=== PATIENT | male | born 1940 | race Caucasian/White ===

== ENCOUNTER 2021-07-19 18:45 | Inpatient (IN) ==
[2021-07-20] MEDS ORDERED: Morphine Sulfate 2 MG/ML SYRINGE IVP ONE (01:15)
[2021-07-20] MEDS ORDERED: Perflutren Lipid Microsphere 1.3 ML in 0.9 % Sodium Chloride 8.7 ML IVP PRN (01:35)
[2021-07-20] MEDS ORDERED: Acetaminophen 325 MG TABLET PO PRN (02:01)
[2021-07-20] MEDS ORDERED: Naloxone 0.4 MG/ML INJ IVP PRN (02:01)
[2021-07-20] MEDS ORDERED: Ondansetron 4 MG/2 ML VIAL IVP PRN (02:01)
[2021-07-20 02:04] LABS: Basophils % 0.7 %; Eosinophils # 0.1 K/mcL (0.0-0.6); Eosinophils % 1.2 %; Hematocrit 38.9 % (37.5-50.1); Hemoglobin 12.7 g/dL (12.9-16.9); Immature Granulocytes % 0.2 % (0-4); Lymphocytes # 1.4 K/mcL (0.6-4.6); Mean Corpuscular HGB Conc 32.6 g/dL (31.6-35.5); Mean Corpuscular Hemoglobin 29.5 pg (28.0-33.3); Mean Corpuscular Volume 90.3 fL (83.0-100.0); Mean Platelet Volume 9.4 fL (9.4-12.4); Monocytes # 0.4 K/mcL (0.0-1.3); Neutrophils # 3.8 K/mcL (1.6-8.9); Platelet Count 159 K/mcL (140-400); Red Blood Count 4.31 M/mcL (4.19-5.50); Red Cell Distribution Width 13.2 % (11.5-14.5); Segmented Neutrophils % 65.9 %; White Blood Count 5.7 K/mcL (4.3-11.1)
[2021-07-20] MEDS ORDERED: Nitroglycerin 1 INCH/GM PACKET TP ONE (02:07)
[2021-07-20 02:18] LABS: INR 1.1; Prothrombin Time 11.9 Seconds (9.4-12.1)
[2021-07-20 02:20] LABS: Activated Partial Thrombo Time 68.8 Seconds (26.0-36.0)
[2021-07-20 02:28] LABS: Troponin I 5.08 ng/mL (< 0.04)
[2021-07-20 02:29] LABS: % Iron Saturation 25 % (20-55); Alanine Aminotransferase 22 Units/L (7-52); Albumin 3.8 g/dL (3.5-5.7); Albumin/Globulin Ratio 1.9 (1.1-2.2); Alkaline Phosphatase 52 Units/L (34-104); Aspartate Amino Transferase 46 Units/L (13-39); BUN/Creatinine Ratio 22 (6-26); Bilirubin,Total 0.4 mg/dL (0.3-1.0); Blood Urea Nitrogen 25 mg/dL (8-23); Carbon Dioxide 28 mEq/L (23-29); Chloride 103 mEq/L (98-107); Chol/HDL Ratio 3.4 (0-4.9); Cholesterol 192 mg/dL (< 200); Glucose 159 mg/dL (70-105); HDL Cholesterol 56 mg/dL (40-59); Iron 78 mcg/dL (65-175); LDL Cholesterol,Calculated 102 mg/dL (< 100); Osmolality,Calculated 294 (280-300); Potassium 3.5 mEq/L (3.5-5.1); Sodium 138 mEq/L (136-145); Total Protein 5.8 g/dL (6.4-8.9); Transferrin 223 mg/dL (203-362); Triglycerides 168 mg/dL (< 150); eGFR For African Americans > 60 (> 60); eGFR For Non-African Americans > 60 (> 60)
[2021-07-20 02:46] LABS: Folate 11.1 ng/mL (3.0-16.0)
[2021-07-20 02:49] LABS: Ferritin 123 ng/mL (20-250); Thyroid Stimulating Hormone 5.081 mcIU/mL (0.340-5.600)
[2021-07-20] MEDS ORDERED: Isovue-370 500 ML BOTTLE IVP ONE (02:49)
[2021-07-20] MEDS ORDERED: *HR* Heparin 5,000 UNIT/ML VIAL IVP PRN ×4 (02:57→15:33)
[2021-07-20] MEDS ORDERED: Heparin 25,000UNIT/250ML 1/2NS 25,000 UNIT/250 ML IV.SOLN IVC SCH ×2 (03:00→15:45)
[2021-07-20] MEDS ORDERED: Famotidine 20 MG/2 ML VIAL IVP ONE (03:33)
[2021-07-20] MEDS ORDERED: Morphine Sulfate 2 MG/ML SYRINGE IVP PRN (05:00)
[2021-07-20 08:45] LABS: Estimated Average Glucose 126 mg/dl
[2021-07-20] MEDS: Aspirin Enteric Coated 81 MG Tablet PO SCH (09:45)
[2021-07-20] MEDS: Finasteride 5 MG TABLET PO SCH (09:45)
[2021-07-20] MEDS ORDERED: *HR* FentaNYL (PF) 100 MCG/2 ML VIAL ONE (11:08)
[2021-07-20] MEDS ORDERED: *HR* Midazolam HCl 2 MG/2 ML VIAL ONE (11:08)
[2021-07-20] MEDS ORDERED: Heparin 1,000 UNITS/500 mL 500 ML ONE (11:09)
[2021-07-20] MEDS ORDERED: 0.9 % Sodium Chloride 2,000 ML ONE (11:09)
[2021-07-20] MEDS ORDERED: Nitroglycerin 1,000 MCG/5 ML VIAL IV ONE (11:09)
[2021-07-20] MEDS ORDERED: ISOVUE-370 200 ML INFUS..BTL ONE (11:09)
[2021-07-20] MEDS ORDERED: *HR* Heparin 10,000 UNIT/10 ML VIAL ONE (11:09)
[2021-07-20] MEDS: Isosorbide MONOnitrate (24 HR) 30 MG TAB.ER.24H PO SCH (12:44)
[2021-07-21 05:10] LABS: Hematocrit 38.1 % (37.5-50.1); Hemoglobin 12.6 g/dL (12.9-16.9); Mean Corpuscular HGB Conc 33.1 g/dL (31.6-35.5); Mean Corpuscular Hemoglobin 30.4 pg (28.0-33.3); Mean Platelet Volume 9.5 fL (9.4-12.4); Platelet Count 154 K/mcL (140-400); Red Blood Count 4.14 M/mcL (4.19-5.50); Red Cell Distribution Width 13.3 % (11.5-14.5)
[2021-07-21 05:24] LABS: BUN/Creatinine Ratio 23 (6-26); Blood Urea Nitrogen 24 mg/dL (8-23); Calcium 8.8 mg/dL (8.6-10.3); Carbon Dioxide 26 mEq/L (23-29); Chloride 105 mEq/L (98-107); Glucose 104 mg/dL (70-105); Osmolality,Calculated 288 (280-300); Potassium 4.1 mEq/L (3.5-5.1); Sodium 137 mEq/L (136-145); eGFR For African Americans > 60 (> 60); eGFR For Non-African Americans > 60 (> 60)
[2021-07-21] MEDS: Finasteride 5 MG TABLET PO SCH (08:46)
[2021-07-21] MEDS: Aspirin Enteric Coated 81 MG Tablet PO SCH (08:46)
[2021-07-21] MEDS: Isosorbide MONOnitrate (24 HR) 30 MG TAB.ER.24H PO SCH (08:46)
[2021-07-21] MEDS ORDERED: lisinopriL 5 MG TABLET PO SCH (09:00)
[2021-07-21 11:29] VITALS: O2SAT 94
[2021-07-21 15:45] VITALS: BP 137/61; PULSE 71; TEMP 98.1
== END 2021-07-21 16:53 | disposition home or self-care (01) | DRG 282 ==
LOC: 3BNU
PROVIDERS: ADMIT Internal Medicine; ATTEND Internal Medicine